=== PATIENT | female | born 1980 | race Caucasian/White ===

== ENCOUNTER 2020-06-19 14:26 | Emergency (ER) | payer OTHER ==
[~2020-06-19] VITALS: Ht 167.6 cm; Wt 74.8 kg
[2020-06-19 14:31] VITALS: BP 122/79
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
--- NOTE | 2020-06-19 14:50 | NUR ---
[facility] AT BEDSIDE SPEAKING WITH PATIENT
[2020-06-19] MEDS ORDERED: ONDANSETRON 4 MG/2 ML VIAL IVP ONE (15:15)
[2020-06-19] MEDS ORDERED: MORPHINE SULFATE 4 MG/ML SYR IVP ONE (15:15)
[2020-06-19] MEDS ORDERED: METH750T5 PO (16:55)
[2020-06-19] MEDS ORDERED: NAPR-54 PO (16:55)
[2020-06-19] MEDS ORDERED: LIDO1ADH47 TP (16:55)
[2020-06-19 17:09] VITALS: BP 134/88
--- NOTE | 2020-06-19 17:10 | NUR ---
Patient discharged with v/s stable. Written and verbal after care instructions given and explained. Patient alert, oriented and verbalized understanding of instructions. Ambulatory with steady gait. All questions addressed prior to discharge. ID band removed. Patient advised to follow up with PMD. Rx of LIDOCAINE, ROBAXIN, AND NAPROXEN given. Patient educated on indication of medication including possible reaction and side effects. Opportunity to ask questions provided and answered.
== END 2020-06-19 17:10 | disposition home or self-care (01) ==
LOC: MED 14:26
DX: S13.4XXA Sprain of ligaments of cervical spine, initial encounter (principal); M54.2 Cervicalgia; R07.9 Chest pain, unspecified; R51.9 Headache, unspecified; V98.8XXA Other specified transport accidents, initial encounter; Y93.89 Activity, other specified; Y92.89 Other specified places as the place of occurrence of the external cause; Y99.8 Other external cause status
CPT/HCPCS: 70450; 71045; 72050; 73080; 81025; 96374; 96375; 99284; J2270; J2405